=== PATIENT | female | born 1975 | race Caucasian/White ===

== ENCOUNTER 2017-03-04 08:57 | Day surgery (SDC) | payer OTHER ==
[~2017-03-04 08:57] MED LIST: RINGER'S SOLUTION,LACTATED 1,000 ML IV PRN; ROPIVACAINE HCL/PF 40 MG in NORMAL SALINE 16 ML IJ PRN; ceFAZolin SODIUM 1 GM VIAL IV PRN
[2017-03-04] MEDS ORDERED: RINGER'S SOLUTION,LACTATED 1,000 ML IV ONE ×2 (09:29→11:00)
[2017-03-04] MEDS ORDERED: BUPIVACAINE HCL/EPINEPHRINE 50 ML VIAL IJ ONE (10:40)
--- NOTE | 2017-03-04 11:13 | OR ---
Operative Report - Dictated Report Narrative: Date: Date: 03/04/2017 Physician: Hung Rodriguez M.D. Rectifying Operator: Martín Cruz PA-C Preoperative diagnosis: Right Knee medial meniscus tear possible loose body Postoperative diagnosis: Right Knee medial meniscus tear, loose bodies Procedure: Right knee arthroscopy with partial medial meniscectomy, removal of small chondral loose bodies Anesthesia: MAC Plus local Complications: None Estimated blood loss: Minimal Tourniquet time: None Specimens: None Retained implants: None Drains: None Indications: Mrs. Sanchez Is a 41 year-old female who has been followed in my clinic with complaints of knee pain consistent with suspected medial joint pathology. Physical exam and diagnostic imaging were consistent with these complaints and concern for medial meniscus pathology. Conservative measures have failed including, but not limited to, passage of time, activity modification, medications, and injections. The risks, benefits, and alternatives were discussed in clinic. The risks being , bleeding, infection, blood clots, nerve, tendon, ligament, blood vessel injury, persistent pain, arthrosis, need for additional procedures, and persistent symptoms. Consent was obtained in the clinic. Procedure: After marking the correct extremity in the preoperative holding area, a timeout was performed in the operating room. IV antibiotics consisting of Ancef were administered prior to the procedure. A well-padded tourniquet was applied to the operative upper thigh. The leg was prepped and draped in a standard sterile fashion. 0.5% Marcaine with epinephrine was infused into the projected portal sites as well as the intra-articular space. A leah incision was made for inferior lateral portal. A blunt trocar and cannula was introduced into the knee. The suprapatellar pouch revealed a thickened firm sessile tissue in the superior lateral aspect of the trochlea. The medial patella facet showed grade 2 change. The lateral patella facet showed grade 2 change. The trochlea showed, arthrosis. The medial gutter revealed no pathology. The medial joint space was then entered utilizing a lateral post and valgus stress. A spinal needle was utilized for guidance into placement of an anterior medial portal. This was placed just superior to the medial meniscus ensuring that we could reach the posterior aspect of the medial joint space. A leah incision was made in the site, and the probe was introduced to the knee. The medial joint space was examined, and the medial femoral condyle showed no arthrosis. The medial tibial plateau showed significant arthrosis. The medial meniscus had a small marginal tear of the posterior one third approximately 10% of the depth. The notch was then examined, and the ACL was noted to be intact. The PCL was noted to be intact. The lateral joint space was then examined using a varus force in the figure 4 position. Lateral femoral condyle showed no significant arthrosis. Lateral tibial plateau showed a chondral fissure without unstable chondral edges. The lateral meniscus showed no tear. There were small chondral loose bodies floating around the lateral joint space which were removed with a shaver. The lateral gutter showed no pathology. Having identified the surgical pathology, a series of biters and tao were utilized in order to debride the posterior one third of the medial meniscus to a depth of approximately 10%. Once it was felt that we adequately addressed the pathology, the knee was thoroughly irrigated. The fluid was evacuated ensuring that we have removed all meniscal, chondral, and any other loose bodies. A final evaluation of the joint showed no additional pathology. The fluid was then evacuated of the knee, and the trocar and camera were removed from the joint. The wounds were closed with interrupted nylon after placing 20 mL of 0.2 % ropivacaine into the joint. Dressings consisting of Xeroform, 4 x 4, ABD, soft roll, and an Conrado were applied. All sponge, needle, blade, and instrument counts were correct prior to closing the wounds. The patient was awoken and transferred to the postanesthesia care unit in stable condition.
[2017-03-04 12:15] VITALS: BP 116/66
== END 2017-03-04 08:58 | disposition home or self-care (01) ==
LOC: AMB 08:57
PROVIDERS: ATTEND Orthopaedic Surgery
PROC: 0SBC4ZZ Excision of Right Knee Joint, Percutaneous Endoscopic Approach (ICD-10-PCS; principal; 2017-03-04 10:25)
DX: M23.221 Derangement of posterior horn of medial meniscus due to old tear or injury, right knee (principal); F17.200 Nicotine dependence, unspecified, uncomplicated; Z68.38 Body mass index [BMI] 38.0-38.9, adult

== ENCOUNTER 2018-03-03 06:24 | Inpatient (IN) ==
--- NOTE | 2018-02-11 10:58 | ANES ---
Anesthesia Pre Procedure Eval HOME MEDICATIONS paroxetine 10 mg tablet 10 mg PO DAILY 01/01/18 [Last Taken Unknown] ibuprofen 200 mg tablet 200 mg PO QID PRN 01/05/18 [Last Taken Unknown] Allergies/Adverse Reactions: Allergies Allergy/AdvReac Type Severity Reaction Status Date / Time oxycodone [From Percocet] Allergy Intermediate Hives Verified 02/10/18 08:22 codeine [Codeine] Allergy Mild n/v Verified 02/10/18 08:22 tramadol AdvReac Mild Headache, Verified 02/10/18 08:22 nausea - Planned Procedure Planned Procedure: Left TKA Medication List Reviewed:: Yes Allergies Verified: Yes Medical History (Last Reviewed 02/11/18 @ 10:57 by Ramin Sosa CRNA) Abdominal pain Onset Date: 05/20/12 Acute pansinusitis Onset Date: 07/30/13 Dysmenorrhea Onset Date: 07/27/12 Fibroid, uterine Onset Date: 2012 Generalized anxiety disorder Onset Date: Unknown Leiomyoma of uterus Onset Date: 07/27/12 Medial meniscus tear Onset Date: 2011 Pre-eclampsia Onset Date: 1998 Seasonal allergies Onset Date: Unknown Tear of lateral meniscus of knee Onset Date: 2011 [place] teeth extracted Onset Date: 2001 Surgical History (Last Reviewed 02/11/18 @ 10:57 by Ramin Sosa CRNA) H/O section Onset Date: 02/1999 History of LAVH Onset Date: 08/11/12 History of arthroscopic knee surgery Onset Date: 2011 History of cystoscopy Onset Date: 08/11/12 History of dilation and curettage Onset Date: 1994 History of endometrial biopsy Onset Date: 06/28/12 lysis of adhesions Onset Date: 08/11/12 meniscal repair Onset Date: 12/23/11 right knee arthroscopy with debridement Onset Date: 03/04/17 Family History (Last Reviewed 02/11/18 @ 10:57 by Ramin Sosa CRNA) Mother Uterine fibroid reflux Vitamin D deficiency Brother Alive and well Father Cancer Grandmother Cancer Myocardial infarction - Family Anesthesia History Family History:: no untoward family reactions to anesthesia, no familial bleeding tendencies, no family history of clotting disorders, no family history of premature - Airway/Neck/Teeth Within Normal Limits:: Yes Teeth Condition: Intact Mallampatti Score: 3 Thyromental (T-M) distance: > 6 cm Mandibulo Hyoid distance: > 3 cm - Respiratory Smoking Status: Current every day smoker - Chews 1 can/3 days Discussed smoking cessation including day of surgery: Yes Sleep Apnea currently treated: No Sleep Apnea by current assessment: No Discussed Risks/Treatment of DAMI: No - Cardiovascular Tolerates Activity: Fair Heart Sounds: S1 & S2, Regular - Anesthesia Assessment and Plan ASA Class: PS, II Anesthesia Type Plan: Block - Left ultrasound guided peripheral nerve block for postop analgesia, Spinal
[~2018-03-03 06:24] MED LIST changes: +MORPHINE SULFATE 15 MG TABLET.SA PO PRN; -RINGER'S SOLUTION,LACTATED 1,000 ML IV PRN; +ROPIVACAINE HCL/PF 100 MG, EPINEPHrine 0.2 MG, KETOROLAC TROMETHAMINE 30 MG in NORMAL S... IJ PRN; -ROPIVACAINE HCL/PF 40 MG in NORMAL SALINE 16 ML IJ PRN; +TRANEXAMIC ACID 1,000 MG in NORMAL SALINE 100 ML IV PRN
[2018-03-03] MEDS: RINGER'S SOLUTION,LACTATED 1,000 ML IV PRN ×2 (07:22→09:30)
[2018-03-03] MEDS ORDERED: MAG HYDROX/ALUMINUM HYD/SIMETH 30 ML UDC PO PRN (09:47)
[2018-03-03] MEDS ORDERED: diphenhydrAMINE HCL 50 MG/ML VIAL IV PRN (09:47)
[2018-03-03] MEDS ORDERED: MAGNESIUM HYDROXIDE 30 ML UDC PO PRN (09:47)
[2018-03-03] MEDS ORDERED: DEXTROSE 5%-LACTATED RINGERS 1,000 ML IV PRN (09:47)
[2018-03-03] MEDS ORDERED: ACETAMINOPHEN 500 MG TABLET PO PRN (09:47)
[2018-03-03] MEDS ORDERED: ZOLPIDEM TARTRATE 5 MG TABLET PO PRN (09:47)
[2018-03-03] MEDS ORDERED: MORPHINE SULFATE 2 MG/ML DISP.SYRIN IV PRN (09:47)
[2018-03-03] MEDS ORDERED: ONDANSETRON HCL/PF 2 MG/ML VIAL IV PRN (09:47)
[2018-03-03] MEDS ORDERED: ALPRAZolam 0.5 MG TABLET PO PRN (09:49)
[2018-03-03] MEDS ORDERED: LORATADINE 10 MG TABLET PO PRN (09:49)
--- NOTE | 2018-03-03 09:53 | OR ---
Operative Report - Dictated Report Narrative: Date: 03/03/2018 Preoperative diagnosis: Left Knee degenerative joint disease. Postoperative diagnosis: Left Knee degenerative joint disease. Procedure: Left Total knee arthroplasty. Surgeon: Hung Rodriguez M.D. Er Manager: Martín Cruz PA-C Anesthesia: Spinal with regional block and local periarticular joint injection. Complications: None Specimens: Bone for disposal. Estimated blood loss: Minimal. Tourniquet time: 90 Minutes at 350 millimeters of mercury. Retained implants: Depuy Attune size 6 narrow left lugged cemented posterior stabilized femoral component. Size 5 fixed-bearing cemented tibial platform. 6 by 5 millimeter posterior stabilized cross-linked tibial insert. 38 millimeter medialized patella button. Indications: Mrs. Sanchez is a 42-year-old female who has had long-standing left knee pain and arthrosis. This patient was followed in my clinic for period of time with significant complaints of left knee pain consistent with arthritic changes. She had failed conservative measures including, but not limited to, activity modification, passage of time, medications, and other conservative measures. Patient wished to proceed with surgical treatment. The risks, benefits, and alternatives were discussed in clinic. The risks of , blood clots, bleeding, infection, nerve/tendon blood vessel/ injury, malposition of components, intraoperative fracture, postoperative limited range of motion, persistent pain, failure of components, and need for additional procedures. Patient wished to proceed consent was obtained after answering all questions. Procedure: After marking the correct extremity on the floor, the patient was taken to the operating room. A timeout was performed. IV antibiotics consisting of Ancef were administered prior to the procedure. A regional followed by spinal anesthetic was induced by anesthesia, per my request, on the operative table with all bony prominences well-padded. Tomlin catheter was placed, and a bump was placed under the operative side buttock. SCDs and MAYCOL hose were utilized on the nonoperative leg. A well-padded tourniquet was applied to the operative thigh. The operative leg was then pre-scrubbed with alcohol prepped, and draped in a standard sterile fashion. After exsanguinating the extremity with an Esmarch bandage, the tourniquet was inflated. After marking out the anterior knee for standard incision centered over the patella, the skin was incised and dissected down to the joint retinaculum. The joint retinaculum was marked out as well as the horizontal axis of the patella, and a standard medial parapatellar arthrotomy was then made. The most proximal aspect of the quadriceps tendon and the patella tendon insertion were protected from release. A partial synovectomy was performed as well as a resection of the infrapatellar fat pad. The distal femoral fat pad proximal to the trochlea was also resected using cautery. The soft tissues were elevated off the medial aspect of the proximal tibia using a Schmidt elevator ensuring that we did not transect the medial collateral ligament. Upon initial evaluation range of motion was approximately 0 degrees to 130 degrees of flexion. There were signs of advanced arthrosis in the medial and patellofemoral joint spaces. There were large marginal osteophytes which were removed with a rongeur. The knee was hyperflexed and the patella was tucked laterally. Protecting the surrounding soft tissues with Homans, an entry drill was placed down the femoral canal using Whitesides line for guidance into the entry point. The intramedullary femoral alignment ashley was utilized in order to cut the distal femur in 5 degrees of valgus resecting 10 millimeters of bone. Next the distal femur was sized to a size 6. A posterior referencing guide was utilized to place the distal femoral cutting block in 3 degrees of external rotation. This was pinned into place. The rotation was confirmed both visually and based on anatomic landmarks. The 4 in 1 cutting jig of the appropriate size was utilized in order to make all bony cuts. The angle wing was used to ensure no notching. Retractors were utilized in order to protect surrounding soft tissues. This cut did not result in any excessive notching. We then cut the box centered over the distal femur. This allowed for resection of the anterior and posterior cruciate ligaments. I then turned my attention to the preparation of the tibia. Using an extra medullary tibial alignment ashley, 3 millimeters of bone was resected off the medial articular surface. This was made perpendicular to the mechanical axis of the joint with the alignment ashley centered over the ankle mortise. The alignment ashley was checked and was noted to be parallel to the mechanical axis, centered over the medial one third of the tibial tubercle, paralleling the anterior surface of the tibia. We then turned our attention to the remaining meniscus and soft tissues. These were removed while protecting the surrounding ligaments and soft tissues. The marginal osteophytes off the anterior, posterior, medial, lateral aspects of the femur and tibia were removed. The tibia was sized out to a size 5. Next the tibia was drilled and punched in an externally rotated position. Next the trial femur and a series of tibial inserts were utilized in order to allow for full extension and maximal flexion. It was found that a 5 millimeter insert gave the best range of motion and stability at multiple flexion points as well as at full extension there was less than 2 mm of gapping both medially and laterally. There is minimal anterior translation with the knee at 90 degrees of flexion and no signs of being able to dislocate the knee. The patella was then prepared. The initial thickness was 24 millimeters. This was reamed down to 14 millimeters parallel to the anterior surface of the patella. It was sized out to a size 38 medialized patella button. This was then drilled and trialed. Without any medial restraint the patella tracked appropriately and did not sublux or dislocate. At this point, it was felt these were the appropriate sized implants, and all trials were removed. The standard periarticular joint injection consisting of ropivacaine, Toradol, and epinephrine were injected into the periarticular joint tissues. The bony surfaces were thoroughly irrigated with a pulsatile-suction saline irrigation device. A bone plug from the prior resected anterior chamfer cut was placed into the drill hole at the distal femur. The bony surfaces were then dried in preparation for placement of the implants. The cement was vacuum mixed per the salmon troll fisher's instructions. The cement was placed on the dry bony surfaces and posterior aspect of the implants. The implants were impacted into place, removing all extruded cement. At this point anesthesia administered tranexamic acid per protocol intravenously. The knee was placed in extension with axial loading with the trial insert while the cement cured. Once the cement cured, all remaining extruded cement was removed. The knee was placed through a range of motion with the trial insert to ensure appropriate range of motion and stability. Final range of motion was approximately 0 to 130 degrees. The knee was again thoroughly irrigated with pulsatile saline lavage. The final polyethylene insert was then impacted into place ensuring no retained soft tissues. The remaining periarticular joint injection was injected. A medium Hemovac drain was placed exiting superior laterally. The knee was then placed over a triangle and the arthrotomy was closed with interrupted #1 Vicryl after thoroughly irrigating the joint. The deep and subcutaneous tissues were closed with interrupted 0 and 3-0 Vicryl respectively. Skin was closed with a running subcutaneous 3-0 Monocryl and Prineo Dermabond dressing. 4 x 4's, Sof-Rol, and a full leg Conrado wrap were applied. All sponge, needle, blade, and instrument counts were correct prior to closing the wounds. Postoperative condition: The patient was awoken and transferred to the postanesthesia care unit in stable condition. Plan is to be admitted to the inpatient medical/surgical floor postoperatively for 24 hours of IV antibiotics, physical therapy, occupational therapy, and medical comanagement. Patient will be weightbearing as tolerated with range of motion as tolerated. DVT prophylaxis will be with SCDs, MAYCOL hose, and pharmacological anticoagulation. Anticipated hospital stay is approximately 1-3 days.
--- NOTE | 2018-03-03 10:13 | ANES ---
Post Anesthesia Discharge - Transfer of Care Transfer of Care handoff given to nurse: Yes - Discharge from PACU Discharge from PACU when meets criteria: Yes
[2018-03-03] MEDS: KETOROLAC TROMETHAMINE 15 MG/ML VIAL IV SCH ×3 (10:45→22:59)
[2018-03-03] MEDS: ceFAZolin SODIUM 1 GM in DEXTROSE 5 % IN WATER 50 ML IV SCH ×6 (10:46→22:59)
[2018-03-03] MEDS: MORPHINE SULFATE 10 MG/0.5 ML SYRINGE PO PRN ×3 (12:58→18:51)
--- NOTE | 2018-03-03 13:30 | ANES ---
Post Anesthesia Assessment - Vital Signs Vitals: Last Vital Signs Temp 36.6 C 03/03/18 10:20 Pulse 81 03/03/18 10:20 Resp 18 03/03/18 10:20 BP 101/59 03/03/18 10:20 Pulse Ox 98 03/03/18 10:20 Airway Patency: Normal - Mental Status Level Of Consciousness: Awake - Pain Level Pain Score: 0 - N/V Assessment Nausea/Vomiting Presence: None Dehydration:: No
--- NOTE | 2018-03-03 13:33 | ANES ---
Anesthesia Procedure Note Procedure Note: ANESTHESIA PROCEDURE NOTE Date of procedure: 03/03/2018. Time of procedure:[]. Performed by: Js Duenas CRNA Assistant Kitchen Manager: [] Deepa Young RN . Preprocedure diagnosis: []. Left knee DJD. Desire for postoperative analgesia. Post procedure diagnosis: Same. Procedure:[] Ultrasound-guided left adductor canal block. Indications: []. Postoperative analgesia Findings: [] Patient was brought to operating room #4 and placed in a supine position. Patient was sedated. Patient's left inner thigh was prepped with DuraPrep. Ultrasound was utilized to identify the abductor canal. 1 mL of 1% Xylocaine was injected into the skin and subcutaneous tissue at the target site. 4 inch 20-gauge Stimuplex regional block needle was advanced under ultrasound guidance until tip of needle was identified in the adductor canal. 20 mL of 0.25% Marcaine with epinephrine 1-200,000 was injected with adequate spread of local anesthesia noted. EBL: Minimal. Fluids: N/A. Specimen: N/A. Post procedure condition: The patient tolerated the procedure well. No complications were noted. Thank you for this consultation Js Duenas CRNA
[2018-03-03] MEDS: MORPHINE SULFATE 15 MG TABLET.SA PO SCH (20:57)
[2018-03-03] MEDS ORDERED: SENNOSIDES/DOCUSATE SODIUM 1 TAB TABLET PO SCH (21:00)
[2018-03-04] MEDS: MORPHINE SULFATE 10 MG/0.5 ML SYRINGE PO PRN ×2 (01:40→05:22)
[2018-03-04] MEDS: KETOROLAC TROMETHAMINE 15 MG/ML VIAL IV SCH ×3 (04:10→15:23)
[2018-03-04 05:34] LABS: Hematocrit 37.6 % (37.0-47.0); Hemoglobin 12.4 gm/dL (12.5-16.0); Mean Cell Volume 88.3 fl (78-100); Mean Corpuscular Hemoglobin 29.1 pg (27-31); Mean Platelet Volume 8.4 fl (8-12.5); Platelet Count 261 K/mm3 (150-450); Red Blood Count 4.26 M/mm3 (4.2-5.4); Red Cell Distribution Width 12.3 % (11.5-14.0); White Blood Count 9.4 K/mm3 (4.0-10.5)
[2018-03-04 05:41] LABS: Anion Gap 12.7 mmol/L (6.8-13.8); BUN/Creatinine Ratio 6.6 (9.0-21.6); Calcium * 8.1 mg/dL (7.9-10.9); Carbon Dioxide 25.9 mmol/L (24-32.6); Estimated Creat Clear 86.2; Potassium 3.6 mmol/L (3.4-4.6)
[2018-03-04] MEDS ORDERED: ENOXAPARIN SODIUM 40 MG/0.4 ML SYRG SC SCH (08:47)
[2018-03-04] MEDS: MORPHINE SULFATE 15 MG TABLET.SA PO SCH (08:49)
[2018-03-04] MEDS ORDERED: PARoxetine HCL 10 MG TABLET PO SCH (09:00)
[2018-03-04] MEDS ORDERED: HYDROcodone/ACETAMINOPHEN 1 EACH TABLET PO PRN (13:39)
[2018-03-04] MEDS ORDERED: PROMETHAZINE HCL 25 MG TABLET PO PRN (13:39)
--- NOTE | 2018-03-04 16:17 | DS ---
(1) Status post total left knee replacement Problem: Acute (2) Osteoarthritis of knee Problem: Chronic Qualifiers: (3) Acute blood loss anemia Problem: Acute (4) Generalized anxiety disorder Problem: Chronic Description of Stay: Mrs. Sanchez was admitted to the floor after undergoing left total knee arthroplasty. Tolerated this well. Was admitted to the floor postoperatively for 24 hours of IV antibiotics, pain control, medical comanagement, and occupational and physical therapy. OT and PT were consulted to assist with activities of daily living and ambulation. Was made weightbearing as tolerated with range of motion as tolerated. Pain was initially controlled with IV regimen. This was transitioned to oral once tolerating a by mouth intake. Was resumed on home diet and medications. Had a Tomlin catheter inserted and the operating room which was discontinued on postoperative day 1. A drain was placed intraoperatively into the knee which was discontinued on postoperative day 1. Lovenox SCD and MAYCOL hose were utilized for DVT prophylaxis. Vital signs remained stable to the hospital course. Serial labs were obtained which showed a final hemoglobin of 12.4 grams. BMP was reviewed and was stable. Physical examination throughout the hospital course showed an extremity that had sensation that was intact to light touch, palpable pulses, a benign wound, motor intact to the toes, ankle, and knee. Knee range of motion was approximately 5 degrees to 70 degrees. Once an oral pain regimen was tolerated and physical therapy goals were met, it was felt that they were stable for discharge to home. Instructions: Continue with weightbearing as tolerated and range of motion as tolerated. It is OK to shower on the wound if it is not draining. If you note any drainage or for comfort you can cover with dry gauze and tape. Change every 2-3 days as needed. Continue with physical therapy. Resume home diet. Report any fever over 101.5 Fahrenheit, uncontrolled pain, increased drainage, foul odor of drainage, new or increased calf pain or shortness of breath, or any other significant complaints. A 325mg dialy aspirin will be started after finishing anticoagulation if not allergic. Continue with MAYCOL hose on the operative extremity until instructed otherwise. No driving until instructed otherwise. Follow up in approximately 10-14 days. Procedures Performed: see notes below List Procedures: Left total knee arthroplasty Results and Findings: Lab Pending Results 03/04/18 05:10: WBC 9.4, RBC 4.26, Hgb 12.4 L, Hct 37.6, MCV 88.3, MCH 29.1, MCHC 33.0, RDW 12.3, Plt Count 261, MPV 8.4 03/04/18 05:10: Sodium 140, Plasma Sodium 141, Potassium 3.6, Chloride 105, Carbon Dioxide 25.9, Anion Gap 12.7, BUN 5 D, Creatinine 0.76, Est GFR (Non-Af Amer) 88, BUN/Creatinine Ratio 6.6 L, Random Glucose 136 H, Calcium 8.1 Discharge Location: Home Disposition: Home self-care Condition: Good Discharge Activity: Activity as tolerated, Weight bearing, Other - with wheeled walker Discharge Diet: General/regular food Referrals: Kathy Knapp MD [Primary Care Provider] - Additional Patient Instructions (free text): outpatient PT at [facility] Prescriptions (Any new or edited meds): Enoxaparin Sodium [Lovenox] 40 mg SC Q24H #7 disp.syrin HYDROcodone/ACETAMINOPHEN [[place] 5-325] 2 ea PO Q4H PRN #90 tab PRN Reason: Pain Morphine Sulfate [Ms Contin] 15 mg PO Q12H #20 tablet.sa Promethazine HCl [Phenergan (Promethazine)] 25 mg PO Q6H PRN #30 tablet PRN Reason: Nausea Sennosides/Docusate Sodium [Senokot-S] 2 tab PO HS #30 tablet Complete Home Medications List: Complete Home Medication List: alprazolam 0.5 mg tablet 0.5 mg PO TID PRN #30 tab 02/17/18 loratadine 10 mg capsule 10 mg PO DAILY PRN #30 cap 02/17/18 paroxetine 10 mg tablet 10 mg PO DAILY #30 tab 02/17/18 Enoxaparin Sodium [Lovenox] 40 mg SC Q24H #7 disp.syrin 03/04/18 HYDROcodone/ACETAMINOPHEN [[place] 5-325] 2 ea PO Q4H PRN #90 tab 03/04/18 Morphine Sulfate [Ms Contin] 15 mg PO Q12H #20 tablet.sa 03/04/18 Promethazine HCl [Phenergan (Promethazine)] 25 mg PO Q6H PRN #30 tablet 03/04/18 Sennosides/Docusate Sodium [Senokot-S] 2 tab PO HS #30 tablet 03/04/18
[2018-03-04 17:31] VITALS: BP 133/83
== END 2018-03-04 17:15 | disposition home or self-care (01) | DRG 470 ==
LOC: MS 06:24 → EDSTATUS 08:00
PROVIDERS: ADMIT Orthopaedic Surgery; ATTEND Orthopaedic Surgery
DX: D62 Acute posthemorrhagic anemia; M25.762 Osteophyte, left knee; F41.1 Generalized anxiety disorder; M17.12 Unilateral primary osteoarthritis, left knee; F17.220 Nicotine dependence, chewing tobacco, uncomplicated
CPT/HCPCS: 36415; 73560; 80048; 85027; 97110; 97116; 97161; 97165; 97530; 97535

== ENCOUNTER 2018-07-05 06:33 | Inpatient (IN) ==
--- NOTE | 2018-07-05 07:05 | ANES ---
Anesthesia Pre Procedure Eval Vitals/Labs: Last Vital Signs Temp 36.0 C 07/05/18 06:36 Pulse 108 H 07/05/18 06:36 Resp 18 07/05/18 06:36 BP 115/71 07/05/18 06:36 Pulse Ox 96 07/05/18 06:36 HOME MEDICATIONS alprazolam 0.5 mg tablet 0.5 mg PO TID PRN #30 tab 02/17/18 [Last Taken 04/20/18] paroxetine 10 mg tablet 10 mg PO DAILY #30 tab 02/17/18 [Last Taken 07/04/18] morphine 15 mg immediate release tablet See Rx Instructions PO .COMPLEX PRN #40 tab 05/27/18 [Last Taken 07/05/18] Allergies/Adverse Reactions: Allergies Allergy/AdvReac Type Severity Reaction Status Date / Time oxycodone [From Percocet] Allergy Intermediate Hives Verified 07/05/18 06:54 codeine [Codeine] Allergy Mild n/v Verified 07/05/18 06:54 tramadol AdvReac Mild Headache, Verified 07/05/18 06:54 nausea IV Morphine AdvReac Intermediate Vomiting, Uncoded 07/05/18 06:54 almost passed out - Planned Procedure Planned Procedure: Lt Knee Revision Tibial Component, Exc Scar Tissue Medication List Reviewed:: Yes Allergies Verified: Yes Medical History (Last Reviewed 07/05/18 @ 07:02 by Ashok Mantilla CRNA) Abdominal pain Onset Date: 05/20/12 diffuse, lower-possibly due to feldene Acute pansinusitis Onset Date: 07/30/13 Anxiety Chewing tobacco nicotine dependence daily Dysmenorrhea Onset Date: 07/27/12 Fibroid, uterine Onset Date: 2012 Generalized anxiety disorder Onset Date: Unknown Currently on 20 mg Paxil daily. History of torn meniscus of right knee Onset Date: ~02/01/15 W/ Dr. Rodriguez Leiomyoma of uterus Onset Date: 07/27/12 Medial meniscus tear Onset Date: 2011 left knee Pre-eclampsia Onset Date: 1998 Seasonal allergies Onset Date: Unknown Seldom use of alcohol Tear of lateral meniscus of knee Onset Date: 2011 left Wears glasses no recreational drug use Surgical History (Last Reviewed 07/05/18 @ 07:03 by Ashok Mantilla CRNA) Status post total left knee replacement (Chronic) Onset Date: 03/03/18 03/03/18 Jennifer H/O section Onset Date: 02/1999 Pre-eclampsia. Arrest of dilation. History of LAVH Onset Date: 08/11/12 History of arthroscopic knee surgery Onset Date: 2011 left, torn meniscus- 2011 History of cystoscopy Onset Date: 08/11/12 History of dilation and curettage Onset Date: 1994 [facility]-Dr. Machado History of endometrial biopsy Onset Date: 06/28/12 Benign. Endometrial Polyp. [place] teeth extracted Onset Date: 2001 1989, [id number] lysis of adhesions Onset Date: 08/11/12 Laparoscopic manipulation under anesthesia Onset Date: ~04/21/18 Manipulation under anesthesia of left knee meniscal repair Onset Date: 12/23/11 Dr. Samayoa/ left knee right knee arthroscopy with debridement Onset Date: 03/04/17 right knee arthroscopy with partial lateral meniscectomy--Dr. Rodriguez; right knee arthroscopy with partial medial meniscectomy, removal of small chondral loose bodies per Dr Rodriguez- 02/07/15; 03/04/17 Family History (Last Reviewed 07/05/18 @ 07:03 by Ashok Mantilla CRNA) Mother Uterine fibroid Vitamin D deficiency reflux Brother Alive and well Father , Poss Cancer. Did not know her father. Cancer Grandmother Myocardial infarction maternal Cancer breast, maternal Grandfather Heart problem paternal Cancer lung Son Alive and well Grandfather paternal Grandmother paternal Dementia - Family Anesthesia History Family History:: no untoward family reactions to anesthesia, no familial bleeding tendencies, no family history of clotting disorders, no family history of premature - Airway/Neck/Teeth Within Normal Limits:: Yes Teeth Condition: intact Denture Type: Full upper Neck Exam: full range of motion Mallampatti Score: 2 Thyromental (T-M) distance: > 6 cm Mandibulo Hyoid distance: > 3 cm - Respiratory Respiratory Physical: lungs clear Smoking Status: Current every day smoker - chew, 1/3 tin per day Discussed smoking cessation including day of surgery: Yes - chewed this am Sleep Apnea currently treated: No Sleep Apnea by current assessment: No - Cardiovascular Tolerate Activity: Fair Heart Sounds: S1 & S2, Regular - Anesthesia Assessment and Plan ASA Class: PS, II Anesthesia Type Plan: Block - for post op pain relief, Spinal
[2018-07-05] MEDS: RINGER'S SOLUTION,LACTATED 1,000 ML IV PRN ×3 (07:31→20:59)
[2018-07-05] MEDS ORDERED: diphenhydrAMINE HCL 50 MG/ML VIAL IV PRN (10:18)
[2018-07-05] MEDS ORDERED: ONDANSETRON HCL/PF 2 MG/ML VIAL IV PRN (10:18)
[2018-07-05] MEDS ORDERED: HYDROmorphone HCL 1 MG/ML DISP.SYRIN IV PRN (10:18)
[2018-07-05] MEDS ORDERED: MAGNESIUM HYDROXIDE 30 ML UDC PO PRN (10:18)
[2018-07-05] MEDS ORDERED: ACETAMINOPHEN 500 MG TABLET PO PRN (10:18)
[2018-07-05] MEDS ORDERED: ZOLPIDEM TARTRATE 5 MG TABLET PO PRN (10:18)
[2018-07-05] MEDS ORDERED: MAG HYDROX/ALUMINUM HYD/SIMETH 30 ML UDC PO PRN (10:18)
[2018-07-05] MEDS ORDERED: ALPRAZolam 0.5 MG TABLET PO PRN (10:22)
--- NOTE | 2018-07-05 10:34 | OR ---
Operative Report - Dictated Report Narrative: Date: 07/05/2018 Preoperative diagnosis: Arthrofibrosis with limited range of motion status post left total knee arthroplasty. Postoperative diagnosis: Arthrofibrosis with limited range of motion status post left total knee arthroplasty. Procedure: Revision left Total knee arthroplasty tibial component, partial synovectomy. Revision of anterior knee scar 20 cm. Surgeon: Hung Rodriguez M.D. Welder Fabricator: Martín Cruz PA-C (provided and essential set of skilled, educated hands that assisted with transfer, positioning, prepping, draping, manipulation, retraction, placement of jigs, injection, insertion of implants, irrigation, closure wounds, and dressings all of which could not be performed by the available surgical crew) Anesthesia: Spinal with regional block and local periarticular joint injection. Complications: None Specimens: Bone for disposal. Implants for disposal, culture 1, tissue for fresh frozen evaluation 1 Estimated blood loss: Minimal. Tourniquet time: 92 Minutes at 325 millimeters of mercury. Retained implants: Depuy Attune size 4 revision tibial base fixed-bearing cemented, 14 mm x 60 mm revision press-fit stem, size 6 x 10 mm cross-linked fixed-bearing posterior stabilized tibial insert. Indications: Mrs. Sanchez is a 42-year-old female who presented with a left total knee arthroplasty. Postoperatively she developed significant limited range of motion. She underwent a manipulation but had significant persistent limited motion interfering with her ability to return to normal activities. We discussed options for treatment she had failed physical therapy, manipulation, bracing, passage of time. She wished to proceed with surgical intervention. We did discuss that as she had a 5 mm insert that we would likely require revision of her tibial component order to improve her motion as she has significant limited flexion and extension. The risks, benefits, and alternatives were discussed in clinic. The risks of , blood clots, bleeding, infection, nerve/tendon blood vessel/ injury, malposition of components, intraoperative fracture, postoperative limited range of motion, persistent pain, failure of components, and need for additional procedures. Patient wished to proceed consent was obtained after answering all questions. Procedure: After marking the correct extremity on the floor, the patient was taken to the operating room. A timeout was performed. IV antibiotics consisting of Ancef were administered prior to the procedure. A regional followed by spinal anesthetic was induced by anesthesia, per my request, on the operative table with all bony prominences well-padded. Tomlin catheter was pl aced, and a bump was placed under the operative side buttock. SCDs and MAYCOL hose were utilized on the nonoperative leg. A well-padded tourniquet was applied to the operative thigh. The operative leg was then pre-scrubbed with alcohol, prepped, and draped in a standard sterile fashion. After exsanguinating the extremity with an Esmarch bandage, the tourniquet was inflated. After marking out the anterior knee for standard incision centered over the patella, the skin was incised and dissected down to the joint retinaculum. The length of the incision was excised which was approximately 20 cm. The joint retinaculum was marked out as well as the horizontal axis of the patella, and a standard medial parapatellar arthrotomy was then made. The most proximal aspect of the quadriceps tendon and the patella tendon insertion were protected from release. After opening the joint there appear to be no gross signs of infection. She had a very thickened joint capsule. A significant partial syn ovectomy was performed around the knee and into the gutters in order to remove the thickened stiff scar tissue. There is also notable scar tissue around the patellar button which was also excised. None of the implants showed signs of damage or loosening. Soft tissue culture and specimen were sent to pathology which returns was less than 3 neutrophils per high-powered field. After releasing the significant portion of the soft tissues we are able to improve her flexion. She started approximately 10-50 of range of motion. After performing the soft tissue releases were able to flex her to approximately 110. The polyethylene insert was removed and a series of osteotomes were utilized in order to disengage the tibia from the bone. This did not result in any significant loss of bone mass. The retained cement was then also removed without any complication. The proximal tibia was sized out to a 4 and a series of intramedullary reamers up to size 14 were utilized. Next I cut a cleanup cut approximately 3-4 mm in order to obtain a solid tibial surface. The trial implants were then impacted and punched in an external rotation position. A series of inserts were trialed and a 10 mm insert allowed for full passive extension to 0 and flexion with gravity to approximately 110 with pressure 120. A lateral patellar release was performed in order to allow for improved tracking of the patella into release the constrained tissues and thickened capsule. Once was felt these were the appropriate implants, they were removed and the bony surfaces were thoroughly irrigated. Standard periarticular joint injection of ropivacaine, Toradol, epinephrine was infused in the soft tissues. We ensured that all the remaining hypertrophic scar tissue about the knee was excised. The bony surfaces were then dried in preparation for placement of the implants. The cement was vacuum mixed per the parachute harness rigger's instructions. The cement was placed on the dry bony surfaces and posterior aspect of the implants. The implants were impacted into place, removing all extruded cement. At this point anesthesia administered tranexamic acid per protocol intravenously. The knee was placed in extension with axial loading with the trial insert while the cement cured. Once the cement cured, all remaining extruded cement was removed. The knee was placed through a range of motion with the trial insert to ensure appropriate range of motion and stability. Final range of motion was approximately 0 to 100 passively and 110 degrees with manipulation. Pictures to confirm this were obtained. The knee was again thoroughly irrigated with pulsatile saline lavage. The final polyethylene insert was then impacted into place ensuring no retained soft tissues. The remaining periarticular joint injection was injected. A medium Hemovac drain was placed exiting superior laterally. The tourniquet was deflated and there is no excessive drainage or bleeding. The knee was then placed over a triangle and the arthrotomy was closed with interrupted #1 Vicryl after thoroughly irrigating the joint. The deep and subcutaneous tissues were closed with interrupted 0 and 3-0 Vicryl respectively. Skin was closed with a running subcutaneous 3-0 Monocryl and Prineo Dermabond dressing. 4 x 4's, Sof-Rol, and a full leg Conrado wrap were applied. All sponge, needle, blade, and instrument counts were correct prior to closing the wounds. Postoperative condition: The patient was awoken and transferred to the postanesthesia care unit in stable condition. Plan is to be admitted to the inpatient medical/surgical floor postoperatively for 24 hours of IV antibiotics, physical therapy, occupational therapy, and medical comanagement. Patient will be weightbearing as tolerated with range of motion as tolerated. DVT prophylaxis will be with SCDs, MAYCOL hose, and pharmacological anticoagulation. Anticipated hospital stay is approximately 1-3 days.
--- NOTE | 2018-07-05 10:36 | ANES ---
Anesthesia Procedure Note Procedure Note: ANESTHESIA PROCEDURE NOTE Date of Procedure: 07/05/2018 Time of procedure: 7:45 AM. Performed by: SHAHLA Dubose CRNA, MSN Hotel Controller: Elma Hsieh RN. Preprocedure diagnosis: Post left knee arthroplasty revision pain. Post procedure diagnosis: Same. Procedure: Left adductor Canal Block. Indications: Post left knee arthroplasty revision pain relief. Findings: See below. Details of the procedure: The patient was brought to OR #4 and placed in supine position. The patient's left femoral area to the knee was prepped with chlorhexidine and using ultrasound guidance the left femoral artery and nerve was identified and then followed to the level of the adductor canal. Lidocaine 1% was infiltrated to the skin of the intended injection site. Under ultrasound guidance the saphenous nerve was approached with visualization of a 2 inch shielded block needle. Once saphenous nerve was identified with proximity to the needle tip, the saphenous nerve was surrounded with 20 mL bupivacaine 0.25% with 1-200,000 epinephrine. Please see radiology/ultrasound report for details and retained images of the procedure. EBL: 0 Fluids: N/A. Specimen: N/A. Post procedure condition: The patient tolerated the procedure well. No complications were noted. Thank you for this consultation. Ashok Mantilla CRNA, ARNP, MSN
--- NOTE | 2018-07-05 10:37 | ANES ---
Post Anesthesia Discharge - Transfer of Care Transfer of Care handoff given to nurse: Yes - Discharge from PACU Discharge from PACU when meets criteria: Yes - Comfortable and awake.
[2018-07-05] MEDS: KETOROLAC TROMETHAMINE 15 MG/ML VIAL IV SCH ×3 (11:21→23:34)
[2018-07-05] MEDS: DEXTROSE 5%-LACTATED RINGERS 1,000 ML IV PRN (11:28)
[2018-07-05] MEDS: ceFAZolin SODIUM 1 GM in DEXTROSE 5 % IN WATER 100 ML IV SCH ×4 (11:30→17:52)
--- NOTE | 2018-07-05 13:10 | ANES ---
Post Anesthesia Assessment - Vital Signs Vitals: Last Vital Signs Temp 36.6 C 07/05/18 11:17 Pulse 86 07/05/18 12:02 Resp 17 07/05/18 12:02 BP 128/75 07/05/18 12:02 Pulse Ox 98 07/05/18 12:02 Airway Patency: Normal - Mental Status Level Of Consciousness: Awake, Alert, Appropriate - Pain Level Pain Score: 0 - N/V Assessment Nausea/Vomiting Presence: None Dehydration:: No
[2018-07-05] MEDS: HYDROmorphone HCL 2 MG TABLET PO PRN ×2 (15:47→19:48)
[2018-07-05] MEDS ORDERED: SENNOSIDES/DOCUSATE SODIUM 1 TAB TABLET PO SCH (21:00)
[2018-07-05] MEDS: MORPHINE SULFATE 15 MG TABLET.SA PO SCH (21:12)
[2018-07-06] MEDS: ceFAZolin SODIUM 1 GM in DEXTROSE 5 % IN WATER 100 ML IV SCH ×2 (00:08)
[2018-07-06] MEDS: DEXTROSE 5%-LACTATED RINGERS 1,000 ML IV PRN (03:02)
[2018-07-06 05:13] LABS: Hematocrit 36.1 % (37.0-47.0); Hemoglobin 12.4 gm/dL (12.5-16.0); Mean Cell Volume 84.1 fl (78-100); Mean Corpuscular Hemoglobin 28.9 pg (27-31); Mean Corpuscular Hgb Conc 34.3 g/dl (32-36); Mean Platelet Volume 8.1 fl (8-12.5); Platelet Count 229 K/mm3 (150-450); Red Blood Count 4.29 M/mm3 (4.2-5.4); Red Cell Distribution Width 12.8 % (11.5-14.0); White Blood Count 7.8 K/mm3 (4.0-10.5)
[2018-07-06 05:21] LABS: Anion Gap 12.5 mmol/L (6.8-13.8); BUN/Creatinine Ratio 7.4 (9.0-21.6); Calcium * 8.1 mg/dL (7.9-10.9); Estimated Creat Clear 94.8; Potassium 3.5 mmol/L (3.4-4.6)
[2018-07-06] MEDS: HYDROmorphone HCL 2 MG TABLET PO PRN ×3 (05:27→14:13)
[2018-07-06] MEDS: KETOROLAC TROMETHAMINE 15 MG/ML VIAL IV SCH ×2 (06:01→11:33)
[2018-07-06] MEDS: MORPHINE SULFATE 15 MG TABLET.SA PO SCH (08:27)
[2018-07-06] MEDS ORDERED: PARoxetine HCL 10 MG TABLET PO SCH (09:00)
--- NOTE | 2018-07-06 11:57 | DS ---
(1) Status post revision of total replacement of left knee Problem: Acute (2) Acute blood loss anemia Problem: Acute Description of Stay: Mrs. Sanchez was admitted to the floor after undergoing revision left total knee arthroplasty tibial component with excision of got scar tissue. Tolerated this well. Was admitted to the floor postoperatively for 24 hours of IV antibiotics, pain control, medical comanagement, and occupational and physical therapy. OT and PT were consulted to assist with activities of daily living and ambulation. Was made weightbearing as tolerated with range of motion as tolerated. Pain was initially controlled with IV regimen. This was transit ioned to oral once tolerating a by mouth intake. Was resumed on home diet and medications. Had a Tomlin catheter inserted and the operating room which was discontinued on postoperative day 1. A drain was placed intraoperatively into the knee which was discontinued on postoperative day 1. Lovenox SCD and MAYCOL hose were utilized for DVT prophylaxis. Vital signs remained stable to the hospital course. Serial labs were obtained which showed a final hemoglobin of 12.4 grams. BMP was reviewed and was stable. Physical examination throughout the hospital course showed an extremity that had sensation that was intact to light touch, palpable pulses, a benign wound, motor intact to the toes, ankle, and knee. Knee range of motion was approximately 0 degrees to 70 degrees. Once an oral pain regimen was tolerated and physical therapy goals were met, it was felt that they were stable for discharge to home. Instructions: Continue with weightbearing as tolerated and range of motion as tolerated. It is OK to shower on the wound if it is not draining. If you note any drainage or for comfort you can cover with dry gauze and tape. Change every 2-3 days as needed. Continue with physical therapy. Resume home diet. Report any fever over 101.5 Fahrenheit, uncontrolled pain, increased drainage, foul odor of drainage, new or increased calf pain or shortness of breath, or any other significant complaints. A 325mg dialy aspirin twice a day. Continue with MAYCOL hose on the operative extremity until instructed otherwise. No driving until instructed otherwise. Follow up in approximately 10-14 days. Procedures Performed: see notes below List Procedures: Revision tibial component left total knee with excision of scar tissue Results and Findings: Pending Mircobiology Results 07/05/18 08:30 Knee - Left Miscellaneous Culture - Preliminary No Growth Lab Pending Results 07/06/18 05:10: WBC 7.8, RBC 4.29, Hgb 12.4 L, Hct 36.1 L, MCV 84.1, MCH 28.9, MCHC 34.3, RDW 12.8, Plt Count 229, MPV 8.1 07/06/18 05:10: Sodium 139, Plasma Sodium 139, Potassium 3.5, Chloride 104, Carbon Dioxide 26.0, Anion Gap 12.5, BUN 5 D, Creatinine 0.68, Est GFR (Non-Af Amer) 100, BUN/Creatinine Ratio 7.4 L, Random Glucose 120 H, Calcium 8.1 Discharge Location: Home Disposition: Home self-care Condition: Good Discharge Activity: Activity as tolerated, Other - with walker Discharge Diet: General/regular food Referrals: Kathy Knapp MD [Primary Care Provider] - Additional Patient Instructions (free text): Follow up Physical Therapy appointment at [facility] outpatient rehab on ThursdayJuly 07 at 1:15pm. Follow up Orthopedic appointment Dr Rodriguez office on ThursdayJuly 20 at 8:30am. Prescriptions (Any new or edited meds): HYDROmorphone HCL [Dilaudid] 2 mg PO Q4H PRN #60 tab PRN Reason: Severe Pain (Pain Scale 7-10) Morphine Sulfate [Ms Contin] 15 mg PO Q12H #20 tablet.sa Promethazine HCl [Phenergan (Promethazine)] 25 mg PO Q6H PRN #30 tab PRN Reason: nausea/vomiting Sennosides/Docusate Sodium [Senokot-S] 2 tab PO HS #30 tab Complete Home Medications List: Complete Home Medication List: alprazolam 0.5 mg tablet 0.5 mg PO TID PRN #30 tab 02/17/18 paroxetine 10 mg tablet 10 mg PO DAILY #30 tab 02/17/18 morphine 15 mg immediate release tablet See Rx Instructions PO .COMPLEX PRN #40 tab 05/27/18 Aspirin [Aspirin Enteric Coated] 325 mg PO BID tablet. 07/06/18 HYDROmorphone HCL [Dilaudid] 2 mg PO Q4H PRN #60 tab 07/06/18 Morphine Sulfate [Ms Contin] 15 mg PO Q12H #20 tablet. 07/06/18 Promethazine HCl [Phenergan (Promethazine)] 25 mg PO Q6H PRN #30 tab 07/06/18 Sennosides/Docusate Sodium [Senokot-S] 2 tab PO HS #30 tab 07/06/18 Amb Orders for Discharge: PT Evaluation and Treatment* Facility: [facility], Location: Rehabilitation Services
[2018-07-06 15:17] VITALS: BP 126/86
[2018-07-07] MEDS ORDERED: ASPIRIN 325 MG TABLET.DR PO SCH (21:00)
== END 2018-07-06 14:15 | disposition home or self-care (01) | DRG 467 ==
LOC: MS 06:33
PROVIDERS: ADMIT Orthopaedic Surgery; ATTEND Orthopaedic Surgery
DX: R26.2 Difficulty in walking, not elsewhere classified; Z96.652 Presence of left artificial knee joint; M25.662 Stiffness of left knee, not elsewhere classified; D62 Acute posthemorrhagic anemia
CPT/HCPCS: 36415; 73560; 80048; 85027; 87070; 87075; 88305; 88331; 97110; 97140; 97161

== ENCOUNTER 2018-12-29 08:09 | Inpatient (IN) ==
[~2018-12-29 08:09] MED LIST changes: +VANCOMYCIN HCL 1 GM in DEXTROSE 5 % IN WATER 250 ML IV PRN
--- NOTE | 2018-12-29 08:23 | ANES ---
Anesthesia Pre Procedure Eval HOME MEDICATIONS alprazolam 0.5 mg tablet 0.5 mg PO TID PRN #30 tab 02/17/18 [Last Taken 04/20/18] paroxetine 10 mg tablet 10 mg PO DAILY #30 tab 02/17/18 [Last Taken 12/29/18] mupirocin 2 % topical ointment See Rx Instructions .ROUTE .COMPLEX #15 g 12/20/18 [Last Taken 12/28/18] Allergies/Adverse Reactions: Allergies Allergy/AdvReac Type Severity Reaction Status Date / Time oxycodone [From Percocet] Allergy Intermediate Hives Verified 12/29/18 08:15 codeine [Codeine] Allergy Mild n/v Verified 12/29/18 08:15 tramadol AdvReac Mild Headache, Verified 12/29/18 08:15 nausea IV Morphine AdvReac Intermediate Vomiting, Uncoded 12/29/18 08:15 almost passed out - Planned Procedure Planned Procedure: Right Total Knee Arthroplasty Medication List Reviewed:: Yes Allergies Verified: Yes Medical History (Updated 12/27/18 @ 14:50 by Iram Abbott RN) Osteoarthritis of knee (Chronic) Abdominal pain Onset Date: 05/20/12 diffuse, lower-possibly due to feldene Acute pansinusitis Onset Date: 07/30/13 Anxiety Chewing tobacco nicotine dependence daily Dysmenorrhea Onset Date: 07/27/12 Fibroid, uterine Onset Date: 2012 Generalized anxiety disorder Onset Date: Unknown Currently on 20 mg Paxil daily. History of torn meniscus of right knee Onset Date: ~02/01/15 W/ Dr. Rodriguez Leiomyoma of uterus Onset Date: 07/27/12 Medial meniscus tear Onset Date: 2011 left knee Pre-eclampsia Onset Date: 1998 Revision left Total knee arthroplasty tibial component Onset Date: 07/05/18 partial synovectomy. Revision of anterior knee scar-Jennifer Seasonal allergies Onset Date: Unknown Seldom use of alcohol Tear of lateral meniscus of knee Onset Date: 2011 left Wears glasses Surgical History (Updated 07/20/18 @ 09:01 by Hung Rodriguez MD) Status post total left knee replacement (Chronic) Onset Date: 03/03/18 03/03/18 Jennifer H/O section Onset Date: 02/1999 Pre-eclampsia. Arrest of dilation. History of LAVH Onset Date: 08/11/12 History of arthroscopic knee surgery Onset Date: 2011 left, torn meniscus- 2011 History of cystoscopy Onset Date: 08/11/12 History of dilation and curettage Onset Date: 1994 [facility]-Dr. Machado History of endometrial biopsy Onset Date: 06/28/12 Benign. Endometrial Polyp. [place] teeth extracted Onset Date: 2001 1989, [id number] lysis of adhesions Onset Date: 08/11/12 Laparoscopic manipulation under anesthesia Onset Date: ~04/21/18 Manipulation under anesthesia of left knee meniscal repair Onset Date: 12/23/11 Dr. Saamyoa/ left knee right knee arthroscopy with debridement Onset Date: 03/04/17 right knee arthroscopy with partial lateral meniscectomy--Dr. Rodriguez; right knee arthroscopy with partial medial meniscectomy, removal of small chondral loose bodies per Dr Rodriguez- 02/07/15; 03/04/17 Family History (Last Reviewed 12/29/18 @ 08:21 by Ramin Sosa CRNA) Mother Uterine fibroid Vitamin D deficiency reflux Brother Alive and well Father , Poss Cancer. Did not know her father. Cancer Grandmother Myocardial infarction maternal Cancer breast, maternal Grandfather Heart problem paternal Cancer lung Son Alive and well Grandfather paternal Grandmother paternal Dementia - Family Anesthesia History Family History:: no untoward family reactions to anesthesia, no familial bleeding tendencies, no family history of clotting disorders, no family history of premature - Airway/Neck/Teeth Within Normal Limits:: Yes Teeth Condition: intact Denture Type: Full upper Mallampatti Score: 2 Thyromental (T-M) distance: > 6 cm Mandibulo Hyoid distance: > 3 cm - Respiratory Respiratory Physical: lungs clear Smoking Status: Current every day smoker Discussed smoking cessation including day of surgery: Yes Sleep Apnea currently treated: No Sleep Apnea by current assessment: No Discussed Risks/Treatment of DAMI: No - Cardiovascular Tolerate Activity: Fair Heart Sounds: S1 & S2, Regular - Anesthesia Assessment and Plan ASA Class: PS, II Anesthesia Type Plan: Block - Right ultrasound guided adductor canal nerve block for postop analgesia, Spinal
[2018-12-29] MEDS: RINGER'S SOLUTION,LACTATED 1,000 ML IV PRN ×3 (08:39→10:35)
[2018-12-29] MEDS ORDERED: MAGNESIUM HYDROXIDE 30 ML UDC PO PRN (10:22)
[2018-12-29] MEDS ORDERED: ONDANSETRON HCL/PF 2 MG/ML VIAL IV PRN (10:22)
[2018-12-29] MEDS ORDERED: HYDROmorphone HCL 1 MG/ML DISP.SYRIN IV PRN (10:22)
[2018-12-29] MEDS ORDERED: diphenhydrAMINE HCL 50 MG/ML VIAL IV PRN (10:22)
[2018-12-29] MEDS ORDERED: MAG HYDROX/ALUMINUM HYD/SIMETH 30 ML UDC PO PRN (10:22)
[2018-12-29] MEDS ORDERED: ACETAMINOPHEN 500 MG TABLET PO PRN (10:22)
[2018-12-29] MEDS ORDERED: DEXTROSE 5%-LACTATED RINGERS 1,000 ML IV PRN (10:22)
[2018-12-29] MEDS ORDERED: ZOLPIDEM TARTRATE 5 MG TABLET PO PRN (10:22)
[2018-12-29] MEDS ORDERED: ALPRAZolam 0.5 MG TABLET PO PRN (10:25)
--- NOTE | 2018-12-29 10:28 | OR ---
Operative Report - Dictated Report Narrative: Date: 12/29/2018 Preoperative diagnosis: Right knee degenerative joint disease. Postoperative diagnosis: Right knee degenerative joint disease. Procedure: Right total knee arthroplasty. Surgeon: Hung Rodriguez M.D. Lithograph Press Operator: Rogelio Rader PA-C (provided and essential set of skilled, educated hands that assisted with transfer, positioning, prepping, draping, manipulation, retraction, placement of jigs, injection, insertion of implants, irrigation, closure wounds, and dressings all of which could not be performed by the available surgical crew) Anesthesia: Spinal with regional block and local periarticular joint injection. Complications: None Specimens: Bone. Estimated blood loss: Minimal. Tourniquet time: 85 Minutes at 325 millimeters of mercury. Retained implants: Depuy Attune size 5 narrow right lugged cemented posterior stabilized femoral component. Size 5 fixed-bearing cemented tibial platform. 5 by 6 millimeter posterior stabilized cross-linked tibial insert. 38 millimeter medialized patella button. Indications: Mrs. Sanchez is a 43-year-old female who has had long-standing right knee pain and arthrosis. This patient was followed in my clinic for period of time with significant complaints of right knee pain consistent with arthritic changes. She had failed conservative measures including, but not limited to, activity modification, passage of time, medications, and other conservative measures. Patient wished to proceed with surgical treatment. The risks, benefits, and alternatives were discussed in clinic. The risks of , blood clots, bleeding, infection, nerve/tendon blood vessel/ injury, malposition of components, intraoperative fracture, postoperative limited range of motion, persistent pain, failure of components, and need for additional procedures. Patient wished to proceed consent was obtained after answering all questions. Procedure: After marking the correct extremity on the floor, the patient was taken to the operating room. A timeout was performed. IV antibiotics consisting of vancomycin and Ancef secondary to a positive MRSA screening were administered prior to the procedure. A regional followed by spinal anesthetic was induced by anesthesia, per my request, on the operative table with all bony prominences well-padded. Tomlin catheter was placed, and a bump was placed under the operative side buttock. SCDs and MAYCOL hose were utilized on the nonoperative leg. A well-padded tourniquet was applied to the operative thigh. The operative leg was then pre-scrubbed with alcohol, prepped, and draped in a standard sterile fashion. After exsanguinating the extremity with an Esmarch bandage, the tourniquet was inflated. After marking out the anterior knee for standard incision centered over the patella, the skin was incised and dissected down to the joint retinaculum. The joint retinaculum was marked out as well as the horizontal axis of the patella, and a standard medial parapatellar arthrotomy was then made. The most proximal aspect of the quadriceps tendon and the patella tendon insertion were protected from release. A partial synovectomy was performed as well as a resection of the infrapatellar fat pad. The distal femoral fat pad proximal to the trochlea was also resected using cautery. The soft tissues were elevated off the medial aspect of the proximal tibia using a Schmidt elevator ensuring that we did not transect the medial collateral ligament. Upon initial evaluation range of motion was approximately 0 degrees to 130 degrees of flexion. There were signs of advanced arthrosis in the lateral and patellofemoral greater than medial joint spaces. There were large marginal osteophytes which were removed with a rongeur. The knee was hyperflexed and the patella was tucked laterally. Protecting the surrounding soft tissues with Homans, an entry drill was placed down the femoral canal using Whitesides line for guidance into the entry point. The intramedullary femoral alignment ashley was utilized in order to cut the distal femur in 5 degrees of valgus resecting 10 millimeters of bone. Next the distal femur was sized to a size 5. A posterior referencing guide was utilized to place the distal femoral cutting block in 3 degrees of external rotation. This was pinned into place. The rotation was confirmed both visually and based on anatomic landmarks. The 4 in 1 cutting jig of the appropriate size was utilized in order to make all bony cuts. The angle wing was used to ensure no notching. Retractors were utilized in order to protect surrounding soft tissues. This cut did not result in any excessive notching. We then cut the box centered over the distal femur. This allowed for resection of the anterior and posterior cruciate ligaments. I then turned my attention to the preparation of the tibia. Using an extra medullary tibial alignment ashley, 6 millimeters of bone was resected off the medial articular surface. This was made perpendicular to the mechanical axis of the joint with the alignment ashley centered over the ankle mortise. The alignment ashley was checked and was noted to be parallel to the mechanical axis, centered over the medial one third of the tibial tubercle, paralleling the anterior surface of the tibia. We then turned our attention to the remaining meniscus and soft tissues. These were removed while protecting the surrounding ligaments and soft tissues. The marginal osteophytes off the anterior, posterior, medial, lateral aspects of the femur and tibia were removed. The tibia was sized out to a size 5. Next the tibia was drilled and punched in an externally rotated position. Next the trial femur and a series of tibial inserts were utilized in order to allow for full extension and maximal flexion. It was found that a 6 millimeter insert gave the best range of motion and stability at multiple flexion points as well as at full extension there was less than 2 mm of gapping both medially and laterally. There is minimal anterior translation with the knee at 90 degrees of flexion and no signs of being able to dislocate the knee. The patella was then prepared. The initial thickness was 23 millimeters. This was reamed down to 13 millimeters parallel to the anterior surface of the patella. It was sized out to a size 38 medialized patella button. This was then drilled and trialed. Without any medial restraint the patella tracked appropriately and did not sublux or dislocate. At this point, it was felt these were the appropriate sized implants, and all trials were removed. The standard periarticular joint injection consisting of ropivacaine, Toradol, and epinephrine were injected into the periarticular joint tissues. The bony surfaces were thoroughly irrigated with a pulsatile-suction saline irrigation device. A bone plug from the prior resected anterior chamfer cut was placed into the drill hole at the distal femur. The bony surfaces were then dried in preparation for placement of the implants. The cement was vacuum mixed per the driving instructor's instructions. The cement was placed on the dry bony surfaces and posterior aspect of the implants. The implants were impacted into place, removing all extruded cement. At this point anesthesia administered tranexamic acid per protocol intravenously. The knee was placed in extension with axial loading with the trial insert while the cement cured. Once the cement cured, all remaining extruded cement was removed. The knee was placed through a range of motion with the trial insert to ensure appropriate range of motion and stability. Final range of motion was approximately 0 to 125 degrees. The knee was again thoroughly irrigated with pulsatile saline lavage. The final polyethylene insert was then impacted into place ensuring no retained soft tissues. The remaining periarticular joint injection was injected. A medium Hemovac drain was placed exiting superior laterally. The knee was then placed over a triangle and the arthrotomy was closed with interrupted #1 Vicryl after thoroughly irrigating the joint. The deep and subcutaneous tissues were closed with interrupted 0 and 3-0 Vicryl respectively. Skin was closed with a running subcutaneous 3-0 Monocryl and Prineo Dermabond dressing. 4 x 4's, Sof-Rol, and a full leg Conrado wrap were applied. All sponge, needle, blade, and instrument counts were correct prior to closing the wounds. Postoperative condition: The patient was awoken and transferred to the postanesthesia care unit in stable condition. Plan is to be admitted to the inpatient medical/surgical floor postoperatively for 24 hours of IV antibiotics, physical therapy, occupational therapy, and medical comanagement. Patient will be weightbearing as tolerated with range of motion as tolerated. DVT prophylaxis will be with SCDs, MAYCOL hose, and pharmacological anticoagulation. Anticipated hospital stay is approximately 1-3 days.
--- NOTE | 2018-12-29 11:34 | ANES ---
Post Anesthesia Discharge - Transfer of Care Transfer of Care handoff given to nurse: Yes - Discharge from PACU Discharge from PACU when meets criteria: Yes - Discharge to ASU Discharge to ASU-no complications/pt stable: Yes
--- NOTE | 2018-12-29 11:36 | ANES ---
Anesthesia Procedure Note Procedure Note: ANESTHESIA PROCEDURE NOTE Date of Procedure: 12/29/2018. Time of procedure: 949. Performed by: Ramin Sosa CRNA Geriatric Case Manager: None. Preprocedure diagnosis: Right knee degenerative joint disease. Post procedure diagnosis: Same. Procedure: Right ultrasound guided adductor canal block for postoperative analgesia. Indications: The patient is a 43-year-old female, requesting right ultrasound- guided abductor canal block for postoperative analgesia related to right total knee arthroplasty. Findings: See below. Details of the procedure: The tissue over the intended target site was cleansed with ChloraPrepand draped in a sterile fashion. 2 ml Lidocaine 1 % was infiltrated to the skin and subcutaneous tissue at the intended target site. Under sterile technique and ultrasound guidance a 20-gauge block needle was inserted through the right sartorius muscle to the saphenous nerve just anterior and medial to the superficial femoral artery and vein. 15 mL's of 0.5% bupivacaine was injected after negative aspiration for blood. Needle tip and spread of local anesthetic surrounding the saphenous nerve was observed throughout the injection with real time ultrasound visualization. The needle was then removed intact. No complications were noted. The images were retained in the Hospital medical database. EBL: Minimal. Fluids: N/A. Specimen: N/A. Post procedure condition: The patient tolerated the procedure well. No complications were noted. Thank you for this consultation. Ramin Sosa CRNA
[2018-12-29] MEDS: KETOROLAC TROMETHAMINE 15 MG/ML VIAL IV SCH ×3 (12:04→22:31)
[2018-12-29] MEDS: HYDROmorphone HCL 2 MG TABLET PO PRN ×4 (12:57→19:26)
[2018-12-29] MEDS: ASPIRIN 325 MG TABLET.DR PO SCH (20:14)
[2018-12-29] MEDS: MORPHINE SULFATE 15 MG TABLET.SA PO SCH (20:15)
[2018-12-29] MEDS ORDERED: VANCOMYCIN HCL 1 GM in DEXTROSE 5 % IN WATER 250 ML IV SCH ×2 (20:22)
[2018-12-29] MEDS ORDERED: SENNOSIDES/DOCUSATE SODIUM 1 TAB TABLET PO SCH (21:00)
[2018-12-30] MEDS: HYDROmorphone HCL 2 MG TABLET PO PRN ×6 (02:05→13:43)
[2018-12-30] MEDS: KETOROLAC TROMETHAMINE 15 MG/ML VIAL IV SCH ×2 (04:30→11:35)
[2018-12-30 05:24] LABS: Hematocrit 37.2 % (37.0-47.0); Hemoglobin 12.2 gm/dL (12.5-16.0); Mean Cell Volume 89.2 fl (78-100); Mean Corpuscular Hemoglobin 29.3 pg (27-31); Mean Corpuscular Hgb Conc 32.8 g/dl (32-36); Mean Platelet Volume 8.1 fl (8-12.5); Platelet Count 256 K/mm3 (150-450); Red Blood Count 4.17 M/mm3 (4.2-5.4); Red Cell Distribution Width 12.1 % (11.5-14.0); White Blood Count 10.2 K/mm3 (4.0-10.5)
[2018-12-30 05:39] LABS: Anion Gap 14.5 mmol/L (6.8-13.8); Calcium * 8.4 mg/dL (7.9-10.9); Carbon Dioxide 25.3 mmol/L (24-32.6); Estimated Creat Clear 86.2; Potassium 3.8 mmol/L (3.4-4.6)
[2018-12-30 05:44] LABS: BUN/Creatinine Ratio 6.8 (9.0-21.6)
[2018-12-30] MEDS ORDERED: PARoxetine HCL 10 MG TABLET PO SCH (09:00)
[2018-12-30] MEDS: ASPIRIN 325 MG TABLET.DR PO SCH (09:23)
[2018-12-30] MEDS: MORPHINE SULFATE 15 MG TABLET.SA PO SCH (09:25)
--- NOTE | 2018-12-30 12:14 | DS ---
(1) Acute blood loss anemia Problem: Acute (2) Status post total right knee replacement Problem: Acute (3) Generalized anxiety disorder Problem: Chronic (4) Osteoarthritis of knee Problem: Chronic Qualifiers: Date of Discharge:: 12/30/18 Description of Stay: Ms. Sanchez was admitted to the floor after undergoing right total knee arthroplasty. Tolerated this well. Was admitted to the floor postoperatively for 24 hours of IV antibiotics, pain control, medical comanagement, and occupational and physical therapy. OT and PT were consulted to assist with activities of daily living and ambulation. Was made weightbearing as tolerated with range of motion as tolerated. Pain was initially controlled with IV regimen. This was transitioned to oral once tolerating a by mouth intake. Was resumed on home diet and medications. Had a Tomlin catheter inserted and the operating room which was discontinued on postoperative day 1. A drain was placed intraoperatively into the knee which was discontinued on postoperative day 1. Aspirin SCD and MAYCOL hose were utilized for DVT prophylaxis. Vital signs remained stable to the hospital course. Serial labs were obtained which showed a final hemoglobin of 12.2 grams. BMP was reviewed and was stable. Physical examination throughout the hospital course showed an extremity that had sensation that was intact to light touch, palpable pulses, a benign wound, motor intact to the toes, ankle, and knee. Knee range of motion was approximately 5 degrees to 50 degrees. Once an oral pain regimen was tolerated and physical therapy goals were met, it was felt that they were stable for discharge to home. Instructions: Continue with weightbearing as tolerated and range of motion as tolerated. It is okay to shower and get the wound wet as long as there is no drainage from the wound. Do not bathe or soak the wound. If there is any drainage from the wound keep the wound clean and dry and cover with dry gauze and tape. Change every 2- 3 days as needed if there is any drainage. Cover wound while showering if there is any drainage. Continue with physical therapy. Resume home diet. Report any fever over 101.5 Fahrenheit, uncontrolled pain, increased drainage, foul odor of drainage, new or increased calf pain or shortness of breath, or any other significant complaints. Continue with MAYCOL hose on the operative extremity until instructed otherwise. No driving until instructed otherwise. Follow up in approximately 2-3 weeks. Procedures Performed: see notes below List Procedures: Right total knee arthroplasty Results and Findings: Lab Pending Results 12/30/18 05:20: WBC 10.2, RBC 4.17 L, Hgb 12.2 L, Hct 37.2, MCV 89.2, MCH 29.3, MCHC 32.8, RDW 12.1, Plt Count 256, MPV 8.1 12/30/18 05:20: Sodium 139, Plasma Sodium 139, Potassium 3.8, Chloride 103, Carbon Dioxide 25.3, Anion Gap 14.5 H, BUN 5 D, Creatinine 0.74, Est GFR (Non- Af Amer) 90, BUN/Creatinine Ratio 6.8 L, Random Glucose 124 H, Calcium 8.4 Disposition: Home self-care Condition: Good Discharge Activity: Activity as tolerated, Weight bearing Discharge Diet: General/regular food Referrals: Hung Rodriguez MD [Staff Physician] - 01/18/19 9:30 am Problem Oriented Discharge Instructions to Patient/Family: Total Knee Replacement, Care After, [id number] Additional Patient Instructions (free text): Physical therapy at [facility] out patient rehab department on 12/31/18 at 11:00am. Follow up in the office with Dr Rodriguez on 01/18/19 at 9:30am. Prescriptions (Any new or edited meds): Aspirin [Aspirin Enteric Coated] 325 mg PO BID #60 tablet. HYDROmorphone HCL [Dilaudid] 2 mg PO Q2H PRN #60 tab PRN Reason: Severe Pain (Pain Scale 7-10) Gabapentin 100 mg PO Q8H #90 cap Morphine Sulfate [Ms Contin] 15 mg PO Q12H #10 tablet.sa Sennosides/Docusate Sodium [Senokot-S] 2 tab PO HS #60 tab Complete Home Medications List: Complete Home Medication List: alprazolam 0.5 mg tablet 0.5 mg PO TID PRN #30 tab 02/17/18 paroxetine 10 mg tablet 10 mg PO DAILY #30 tab 02/17/18 mupirocin 2 % topical ointment See Rx Instructions .ROUTE .COMPLEX #15 g 12/20/18 Aspirin [Aspirin Enteric Coated] 325 mg PO BID #60 tablet. 12/30/18 Gabapentin 100 mg PO Q8H #90 cap 12/30/18 HYDROmorphone HCL [Dilaudid] 2 mg PO Q2H PRN #60 tab 12/30/18 Morphine Sulfate [Ms Contin] 15 mg PO Q12H #10 tablet.sa 12/30/18 Naproxen [Naprosyn] 500 mg PO BID #60 tab 12/30/18 Sennosides/Docusate Sodium [Senokot-S] 2 tab PO HS #60 tab 12/30/18 Amb Orders for Discharge: PT Evaluation and Treatment* Facility: [facility], Location: Rehabilitation Services
[2018-12-30 19:50] VITALS: BP 140/83
== END 2018-12-30 14:45 | disposition home or self-care (01) | DRG 470 ==
LOC: MS 08:09 → EDSTATUS 11:45
PROVIDERS: ADMIT Orthopaedic Surgery; ATTEND Orthopaedic Surgery
CPT/HCPCS: 36415; 73560; 80048; 85027; 97110; 97116; 97161; 97165